=== PATIENT | female | born 1975 ===

== ENCOUNTER → 2020-03-22 | Outpatient (CLI) | payer OTHER ==
[~2020-03-22] MED LIST: FERR-84 PO; FERR325C PO; IBP800T PO; IBUP-1773 PO; PREN1TAB39 PO
--- NOTE | 2020-03-22 16:48 | Diagnostic Imaging Report ---
INDICATION: Routine screening. COMPARISON is made with prior mammograms from 04/22/2015 and 12/17/2013. 2-D and 3-D bilateral screening mammography was performed with CAD. Scattered fibroglandular densities are identified bilaterally. The parenchymal pattern is stable. No dominant mass or malignant appearing microcalcifications are seen. Axillae are unremarkable. IMPRESSION: BI-RADS Category 1. No mammographic features suspicious for malignancy are identified. ACR BI-RADS Category 1: Negative. Result letter will be mailed to the patient. Note: At least 10% of breast cancer is not imaged by mammography. Dictated by: Dictated on workstation # [id number]
== END ==
LOC: RAD 15:29
PROVIDERS: ATTEND Nurse Practitioner
DX: Z12.31 Encounter for screening mammogram for malignant neoplasm of breast (principal)
CPT/HCPCS: 77063; 77067

== ENCOUNTER → 2020-10-05 | Outpatient (CLI) | payer OTHER ==
--- NOTE | 2020-10-05 15:40 | Diagnostic Imaging Report ---
PROCEDURE: Pelvic comp/transvaginal sonogram. TECHNIQUE: Complete transabdominal and transvaginal pelvic ultrasound was performed. In addition, limited pelvic Doppler was performed. INDICATION: Cannot find IUD strings. FINDINGS: The uterus is anteverted measuring 7.7 x 4.6 x 4.2 cm. The endometrium is 2 mm in thickness. There is some echogenic foci within the endometrium which could represent the IUD; however, this is not well visualized on today's exam. There is no myometrial mass. The right ovary measures 2.7 x 1.9 x 2.0 cm and the left ovary measures 2.4 x 1.5 x 2.4 cm. There is blood flow to the ovaries. There is no free fluid or adnexal mass. IMPRESSION: There appears to be an IUD within the endometrial canal; however, the IUD was somewhat difficult to image. It may prove useful to obtain a pelvic radiograph to better visualize the IUD. The remainder of the study is unremarkable. Dictated by: Dictated on workstation # [id number]
== END ==
LOC: RAD 13:30
PROVIDERS: ATTEND Obstetrics & Gynecology
DX: T83.39XA Other mechanical complication of intrauterine contraceptive device, initial encounter (principal)
CPT/HCPCS: 76830; 76856

== ENCOUNTER 2021-02-20 05:49 | Outpatient (CLI) | payer OTHER ==
[~2021-02-20] VITALS: Ht 165.1 cm; Wt 100.0 kg
== END 2021-02-21 10:53 | disposition home or self-care (01) ==
LOC: PREOP 05:49
PROVIDERS: ATTEND Obstetrics & Gynecology
DX: Z01.818 Encounter for other preprocedural examination (principal)

== ENCOUNTER 2021-02-27 08:16 | Day surgery (SDC) | payer OTHER ==
[~2021-02-27] VITALS: Ht 165.1 cm; Wt 100.0 kg
[2021-02-27] VITALS (11 sets, daily range): BP systolic 105–124; BP diastolic 48–83
[2021-02-27 09:19] LABS: BASOPHILS % (AUTO) 0 % (0-10); EOSINOPHILS % (AUTO) 1 % (0-10); HEMATOCRIT 41 % (35-52); HEMOGLOBIN 13.3 g/dL (11.5-16.0); LYMPHOCYTES # (AUTO) 1.3 10^3/uL (1.0-4.0); LYMPHOCYTES % (AUTO) 26 % (12-44); MEAN CORPUSCULAR HEMOGLOBIN 30 pg (25-34); MEAN CORPUSCULAR HGB CONC 33 g/dL (32-36); MEAN CORPUSCULAR VOLUME 90 fL (80-99); MEAN PLATELET VOLUME 11.4 fL (9.0-12.2); MONOCYTES # (AUTO) 0.5 10^3/uL (0.0-1.0); MONOCYTES % (AUTO) 10 % (0-12); NEUTROPHILS # (AUTO) 3.2 10^3/uL (1.8-7.8); NEUTROPHILS % (AUTO) 62 % (42-75); PLATELET COUNT 232 10^3/uL (130-400); WHITE BLOOD COUNT 5.1 10^3/uL (4.3-11.0)
[2021-02-27] MEDS: LACTATED RINGERS 1,000 ML IV PRN ×2 (09:20→10:45)
[2021-02-27] MEDS ORDERED: MIDAZOLAM 2 MG/2 ML (VERSED) VIAL ONE (09:52)
[2021-02-27] MEDS ORDERED: fentaNYL INJ 100 MCG/2 ML AMP ONE (09:52)
--- NOTE | 2021-02-27 10:13 | Progress Note-Pre Operative ---
Pre-Operative Progress Note H&P Reviewed The H&P was reviewed, patient examined and no changes noted. Date Seen by Provider: Feb 27, 2021 Time Seen by Provider: 10:00 Date H&P Reviewed: Feb 27, 2021 Time H&P Reviewed: 10:00 Pre-Operative Diagnosis: Retained IUD CHRISTIANO NORMAN DO Feb 27, 2021 10:13
[2021-02-27] MEDS ORDERED: D5 LR IV SOLUTION 1,000 ML IV SCH (10:15)
[2021-02-27] MEDS ORDERED: ONDANSETRON 4 MG/2 ML (SDV) Z0FRAN IVP PRN ×2 (10:15→11:15)
[2021-02-27] MEDS ORDERED: KETOROLAC 30 MG/ML VIAL IVP ONE (10:15)
--- NOTE | 2021-02-27 10:16 | Discharge Inst-Women's Service ---
Discharge Inst-Women's Serv Depart Medication/Instructions Instructions Motrin OTC as needed Consults/Follow Up Additional Follow Up: Yes Orders/Referrals 14 days Activity Activity: Activity as Tolerated Driving Instructions: You May Drive NO SMOKING: NO SMOKING Nothing Inside Vagina: No Douching, No [place], No Tampons Diet Discharge Diet: No Restrictions CHRISTIANO NORMAN DO Feb 27, 2021 10:16
[2021-02-27] MEDS ORDERED: LIDOCAINE/EPI 1%-1:200,000 (XYLOCAINE) 30 ML VIAL ONE (10:29)
[2021-02-27] MEDS ORDERED: proPOfol 200 MG/20 ML (DIPRIVAN) VIAL IV ONE (10:37)
[2021-02-27] MEDS ORDERED: ONDANSETRON 4 MG/2 ML (SDV) Z0FRAN ONE (10:37)
[2021-02-27] MEDS ORDERED: LIDOCAINE PF 2% 5 ML (XYLOCAINE) VIAL ONE (10:37)
[2021-02-27] MEDS ORDERED: KETOROLAC 30 MG/ML VIAL ONE (10:37)
[2021-02-27] MEDS ORDERED: SEVOFLURANE (ULTANE) 15 ML INHAL SOLN ONE (10:53)
[2021-02-27] MEDS ORDERED: fentaNYL INJ 100 MCG/2 ML AMP IVP ONE (11:15)
[2021-02-27] MEDS ORDERED: morphine INJ 10 MG/ML 1ML (SYR OR VIAL) IVP ONE (11:15)
--- NOTE | 2021-02-27 12:47 | Anesthesia-General Post-Op ---
General Patient Condition Mental Status/LOC: Same as Preop Cardiovascular: Satisfactory Nausea/Vomiting: Absent Respiratory: Satisfactory Pain: Controlled Complications: Absent Post Op Complications Complications None Follow Up Care/Instructions Patient Instructions None needed. Anesthesia/Patient Condition Patient Condition Patient is doing well, no complaints, stable vital signs, no apparent adverse anesthesia problems. No complications reported per nursing. DAVID MCCABE CRNA Feb 27, 2021 12:47
--- NOTE | 2021-02-27 16:32 | OPERATIVE REPORT ---
DATE OF SERVICE: PREOPERATIVE DIAGNOSIS: Retained IUD. POSTOPERATIVE DIAGNOSIS: Retained IUD. PROCEDURE: Laparoscopic retrieval of IUD. SURGEON: Christiano Norman DO ANESTHESIA: LMA general. ESTIMATED BLOOD LOSS: Minimal. URINE OUTPUT: 50 mL, clear drained at start of procedure. FLUIDS: 1000 mL lactated Ringer's solution. FINDINGS: Grossly normal-appearing external female genitalia, no IUD strings present on external visualization of the cervix. SPECIMEN SENT: None. INDICATIONS FOR PROCEDURE: This 45-year-old female is a patient sent to me by the [facility] for IUD retrieval as they were unable to do so in the office, I was unable to perform this in the office as well. Imaging studies showed IUD was still in the uterus. Therefore, I discussed with the patient retrieval under anesthesia and potential hysteroscopy. Risks of the procedure were discussed with the patient in detail and after all her questions were answered in the preoperative area with her daughter present, consent was obtained, the patient was taken to the operating room. OPERATIVE REPORT IN DETAIL: Once in the operating room, anesthesia was found to be adequate, placed in dorsal lithotomy position, prepped and draped in normal sterile fashion. The bladder was drained and a timeout was performed. A weighted speculum inserted to the patient's vagina. Right angle retractor was utilized. Cervix was grasped at 12 o'clock position using a long Allis clamp. I then performed paracervical block at 3 and 9 o'clock positions on the cervix. Care was taken to aspirate for injecting 5 mL of 0.25% Marcaine injected into each site. I then gently sound the uterine cavity, depth was found to be 9 cm. I attempted several passes with a curved Sarah Beth to grasp the IUD unsuccessful in doing so therefore introduced a hysteroscope, which was a 5 mm scope, which was able to easily pass through the cervix with normal saline as my visual medium able to identify the IUD, which is deviated and out of position facing the patient's left, it is grasped at the midportion and removed intact in 1 piece from the cervix, after which there was no active bleeding noted from any of my dissection planes. There is no active bleeding noted from the cervix. All instruments were removed from the patient's vagina. The patient tolerated the procedure well and sent to recovery area in stable condition. Lap and sponge counts were correct at the end of the procedure. Instrument counts correct as well. Job ID: [id number] DocumentID: [id number] Dictated Date: 02/27/2021 11:56:40 Activity Aid Date: 02/27/2021 16:32:12 Dictated By: CHRISTIANO NORMAN DO
== END 2021-02-27 12:50 | disposition home or self-care (01) ==
LOC: SDC 08:16
PROVIDERS: ATTEND Obstetrics & Gynecology
DX: T83.39XA Other mechanical complication of intrauterine contraceptive device, initial encounter (principal)
CPT/HCPCS: 36415; 84703; 85025; 86850; 86900; 86901; 87081